=== PATIENT | male | born 1990 | race Caucasian/White ===

== ENCOUNTER 2016-07-09 18:04 | Emergency (ER) | payer BC ==
[~2016-07-09] VITALS: Ht 172.7 cm; Wt 74.8 kg
--- NOTE | 2016-07-09 18:42 | Emergency Room Report ---
History of Present Illness General Chief Complaint: Skin Rash/Abscess Source: Patient Present Illness HPI 25-year-old male presents emergency department complaining of itchy rash localized on the anterior left flores x4 days. Patient reports new onset increased erythema of lesions noted on the anterior flores. Patient states that he was hiking this weekend and had acute onset of the rash with moderate itching. Patient states he has not had fevers, chills or progression of the rash in size. he states he is up-to-date with vaccinations. Denies increased temperature palpation. he reports itching is primary symptom however he is now developing prior to 10 pain described as burning sensation..he has not taken medications for his symptoms. Denies numbness tingling or loss of sensation or gross motor movements of the extremities, incontinence of bowel or bladder. Denies CP, Palpitations, LOC, AMS, dizziness, Changes in Vision, Sensation, paresthesias, or a sudden severe headache. Allergies: Coded Allergies: AMOXICILLIN (Verified Allergy, Intermediate, 07/09/16) PENICILLINS (Verified Allergy, Intermediate, 07/09/16) Patient History Past Medical History: see triage record Past Surgical History: none Pertinent Family History: none Immunizations: UTD Reviewed Nursing Documentation: PMH: Agreed, PSxH: Agreed Nursing Documentation-PMH Hx Cardiac Problems: No Hx Hypertension: No Hx Pacemaker: No Hx Asthma: No Hx COPD: No Hx Diabetes: No Hx Cancer: No Hx Gastrointestinal Problems: No Hx Dialysis: No History Of Psychiatric Problem: No Hx Neurological Problems: No Hx Cerebrovascular Accident: No Hx Seizures: No Review of Systems All Other Systems: negative except mentioned in HPI Physical Exam Vital Signs Date Time Temp Pulse Resp B/P Pulse Ox O2 Delivery O2 Flow Rate FiO2 07/09/16 18:20 98.1 86 16 150/71 98 Room Air Sp02 EP Interpretation: reviewed, normal General Appearance: no apparent distress, alert, GCS 15, non-toxic Head: normocephalic, atraumatic Eyes: bilateral eye PERRL, bilateral eye normal inspection ENT: hearing grossly normal, normal pharynx, no angioedema, normal voice Neck: full range of motion, supple/symm/no masses Respiratory: chest non-tender, lungs clear, normal breath sounds, speaking full sentences Cardiovascular #1: regular rate, rhythm, no edema, normal capillary refill Musculoskeletal: back normal, gait/station normal, normal range of motion, non- tender, no calf tenderness, other - rash noted to the anterior left lower leg, non blanching erythema, mild macerated appearance with obvious excoriations, no vessicles noted. Neurologic: alert, oriented x3, responsive, motor strength/tone normal, sensory intact, normal gait, speech normal Psychiatric: judgement/insight normal, memory normal, mood/affect normal Skin: normal color, no rash, warm/dry, well hydrated Lymphatic: no adenopathy Medical Decision Making PA Attestation Dr. juan is my supervising Physician whom patient management has been discussed with. Diagnostic Impression: Primary Impression: Rash and other nonspecific skin eruption Additional Impressions: Contact dermatitis Qualified Codes: L24.9 - Irritant contact dermatitis, unspecified cause Cellulitis Qualified Codes: L03.116 - Cellulitis of left lower limb ER Course 25-year-old male presents emergency department complaining of itchy rash localized on the anterior left flores x4 days. Patient reports new onset increased erythema of lesions noted on the anterior flores. Patient states that he was hiking this weekend and had acute onset of the rash with moderate itching. Patient states he has not had fevers, chills or progression of the rash in size. he states he is up-to-date with vaccinations. Denies increased temperature palpation. he reports itching is primary symptom however he is now developing prior to 10 pain described as burning sensation..he has not taken medications for his symptoms Ddx considered but are not limited to cellulitis, scabies, shingles, varicella, dermatitis, urticaria, eczema, tinea, poison oak, lyme disease. Vital signs: are WNL, pt. is afebrile H&PE are most consistent with contact dermatitis and secondary infection with crusting. ORDERS: none required at this time, the diagnosis is clinical ED INTERVENTIONS: -wound care/cleaning - bacitracin is applied. DISCHARGE: At this time pt. is stable for d/c to home. Will provide printed patient care instructions, and any necessary prescriptions. Care plan and follow up instructions have been discussed with the patient prior to discharge. Last Vital Signs Date Time Temp Pulse Resp B/P Pulse Ox O2 Delivery O2 Flow Rate FiO2 07/09/ 18:20 98.1 86 16 150/71 98 Room Air Disposition: HOME, SELF-CARE Condition: Stable Scripts Hydrocortisone 2% Cream (ANTI-ITCH 2% CREAM) Y Cr 1 APPLIC TP TID, #15 GM Prov: Kamala Gonzalez 07/09/16 Hydroxyzine HCl (Hydroxyzine HCl) 25 Mg Tablet 25 MG ORAL FOUR TIMES A DAY for 10 Days, #30 TAB Prov: Kamala Gonzalez 07/09/16 Doxycycline Hyclate* (VIBRAMYCIN*) 100 Mg Capsule 100 MG ORAL EVERY 12 HOURS for 7 Days, #14 CAP 0 Refills Prov: Kamala Gonzalez 07/09/16 Bacitracin/Polymyxin B Sulfate (BACITRACIN-POLYMYXIN OINTMENT) 28.35 Gm Oint...g. 1 APPLIC TP BID, #28.3 GM Prov: Kamala Gonzalez 07/09/16 Patient Instructions: Rash Additional Instructions: Take medications as directed. Follow up with PCP in 3-5 days Return sooner to ED if new symptoms occur, or current symptoms become worse. Do not drink alcohol, drive, or operate heavy machinery while taking hydroxyzine as this may cause drowsiness. - Please note that this Emergency Department Report was dictated using [employer] technology software, occasionally this can lead to erroneous entry secondary to interpretation by the dictation equipment. Kamala Gonzalez July 09, 2016 18:42
[2016-07-09 18:44] VITALS: BP 150/71
[2016-07-09] MEDS ORDERED: Bacitracin Oint UD TOPIC ONE (19:00)
[2016-07-09] MEDS ORDERED: ATARAX25 MG ORAL (19:02)
[2016-07-09] MEDS ORDERED: ANTI-ITCH28 G1 TP (19:02)
[2016-07-09] MEDS ORDERED: VIBRAMYCIN100 MG ORAL (19:02)
[2016-07-09] MEDS ORDERED: BACITRACIN-P28.35 GM TP (19:02)
[2016-07-09 19:24] VITALS: BP 150/71
== END 2016-07-09 19:27 | disposition home or self-care (01) ==
LOC: EMR 18:50
DX: L25.9 Unspecified contact dermatitis, unspecified cause (principal); L03.116 Cellulitis of left lower limb; Z88.0 Allergy status to penicillin
CPT/HCPCS: 99284